=== PATIENT | male | born 1950 | race Caucasian/White ===

== ENCOUNTER → 2018-04-16 12:55 | Outpatient (CLI) | payer MEDICARE, OTHER, SELFPAY | PROVIDERS: PCP Internal Medicine; Visit Provider Internal Medicine | DX: Z48.817 Encounter for surgical aftercare following surgery on the skin and subcutaneous tissue (principal); L84 Corns and callosities; E11.9 Type 2 diabetes mellitus without complications | CPT/HCPCS: 99212 ==

== ENCOUNTER → 2018-04-23 09:18 | Outpatient (CLI) | payer MEDICARE, OTHER, SELFPAY | PROVIDERS: PCP Internal Medicine; Visit Provider Internal Medicine | DX: L84 Corns and callosities (principal); E11.9 Type 2 diabetes mellitus without complications; M21.6X2 Other acquired deformities of left foot | CPT/HCPCS: 99212 ==

== ENCOUNTER → 2019-07-07 13:23 | Outpatient (CLI) | payer MEDICARE, OTHER, SELFPAY | PROVIDERS: PCP Family Medicine; Visit Provider Family Medicine | DX: E11.621 Type 2 diabetes mellitus with foot ulcer (principal); L97.422 Non-pressure chronic ulcer of left heel and midfoot with fat layer exposed; E11.40 Type 2 diabetes mellitus with diabetic neuropathy, unspecified | CPT/HCPCS: 11042; 93922; 99212; 99214 ==

== ENCOUNTER → 2019-07-14 08:43 | Outpatient (CLI) | payer MEDICARE, OTHER, SELFPAY | PROVIDERS: PCP Family Medicine; Visit Provider Family Medicine | DX: E11.621 Type 2 diabetes mellitus with foot ulcer (principal); E11.40 Type 2 diabetes mellitus with diabetic neuropathy, unspecified; L97.421 Non-pressure chronic ulcer of left heel and midfoot limited to breakdown of skin | CPT/HCPCS: 11042 ==

== ENCOUNTER → 2019-07-21 09:53 | Outpatient (CLI) | payer MEDICARE, OTHER, SELFPAY | PROVIDERS: PCP Family Medicine; Visit Provider Family Medicine | DX: E11.621 Type 2 diabetes mellitus with foot ulcer (principal); L97.422 Non-pressure chronic ulcer of left heel and midfoot with fat layer exposed; E11.40 Type 2 diabetes mellitus with diabetic neuropathy, unspecified | CPT/HCPCS: 97597; 99212 ==

== ENCOUNTER → 2019-07-28 09:27 | Outpatient (CLI) | payer MEDICARE, OTHER, SELFPAY | PROVIDERS: PCP Family Medicine; Visit Provider Family Medicine | DX: E11.621 Type 2 diabetes mellitus with foot ulcer (principal); L97.422 Non-pressure chronic ulcer of left heel and midfoot with fat layer exposed; E11.40 Type 2 diabetes mellitus with diabetic neuropathy, unspecified | CPT/HCPCS: 11042; 99212 ==

== ENCOUNTER → 2019-08-04 09:57 | Outpatient (CLI) | payer MEDICARE, OTHER, SELFPAY | PROVIDERS: PCP Family Medicine; Visit Provider Family Medicine | DX: E11.621 Type 2 diabetes mellitus with foot ulcer (principal); L97.422 Non-pressure chronic ulcer of left heel and midfoot with fat layer exposed; E11.40 Type 2 diabetes mellitus with diabetic neuropathy, unspecified | CPT/HCPCS: 11042; 87070; 87205; 99213 ==

== ENCOUNTER → 2019-08-11 09:15 | Outpatient (CLI) | payer MEDICARE, OTHER, SELFPAY | PROVIDERS: PCP Family Medicine; Visit Provider Family Medicine | DX: E11.621 Type 2 diabetes mellitus with foot ulcer (principal); L97.429 Non-pressure chronic ulcer of left heel and midfoot with unspecified severity; E11.40 Type 2 diabetes mellitus with diabetic neuropathy, unspecified | CPT/HCPCS: 11042 ==

== ENCOUNTER → 2019-08-16 15:02 | Outpatient (CLI) | payer MEDICARE, OTHER, SELFPAY | PROVIDERS: PCP Family Medicine; Visit Provider Family Medicine | DX: E11.621 Type 2 diabetes mellitus with foot ulcer (principal); L97.421 Non-pressure chronic ulcer of left heel and midfoot limited to breakdown of skin; E11.40 Type 2 diabetes mellitus with diabetic neuropathy, unspecified | CPT/HCPCS: 11042 ==

== ENCOUNTER → 2019-08-18 09:12 | Outpatient (CLI) | payer MEDICARE, OTHER, SELFPAY | PROVIDERS: PCP Family Medicine; Visit Provider Family Medicine | DX: E11.621 Type 2 diabetes mellitus with foot ulcer (principal); L97.421 Non-pressure chronic ulcer of left heel and midfoot limited to breakdown of skin; E11.40 Type 2 diabetes mellitus with diabetic neuropathy, unspecified | CPT/HCPCS: 29445 ==

== ENCOUNTER → 2019-08-25 13:04 | Outpatient (CLI) | payer MEDICARE, OTHER, SELFPAY | PROVIDERS: PCP Family Medicine; Visit Provider Family Medicine | DX: E11.621 Type 2 diabetes mellitus with foot ulcer (principal); L97.421 Non-pressure chronic ulcer of left heel and midfoot limited to breakdown of skin; E11.40 Type 2 diabetes mellitus with diabetic neuropathy, unspecified | CPT/HCPCS: 97597 ==

== ENCOUNTER → 2019-09-01 15:32 | Outpatient (CLI) | payer MEDICARE, OTHER, SELFPAY | PROVIDERS: PCP Family Medicine; Visit Provider Family Medicine | DX: E11.621 Type 2 diabetes mellitus with foot ulcer (principal); L97.421 Non-pressure chronic ulcer of left heel and midfoot limited to breakdown of skin; E11.40 Type 2 diabetes mellitus with diabetic neuropathy, unspecified | CPT/HCPCS: 29445 ==

== ENCOUNTER → 2019-09-08 14:38 | Outpatient (CLI) | payer MEDICARE, OTHER, SELFPAY | PROVIDERS: PCP Family Medicine; Visit Provider Family Medicine | DX: E11.621 Type 2 diabetes mellitus with foot ulcer (principal); L97.422 Non-pressure chronic ulcer of left heel and midfoot with fat layer exposed; E11.40 Type 2 diabetes mellitus with diabetic neuropathy, unspecified | CPT/HCPCS: 29445 ==

== ENCOUNTER → 2019-09-15 13:37 | Outpatient (CLI) | payer MEDICARE, OTHER, SELFPAY | PROVIDERS: PCP Family Medicine; Visit Provider Family Medicine | DX: E11.621 Type 2 diabetes mellitus with foot ulcer (principal); L97.421 Non-pressure chronic ulcer of left heel and midfoot limited to breakdown of skin; E11.51 Type 2 diabetes mellitus with diabetic peripheral angiopathy without gangrene; E11.40 Type 2 diabetes mellitus with diabetic neuropathy, unspecified | CPT/HCPCS: 99212; 99213 ==

== ENCOUNTER → 2019-09-29 15:01 | Outpatient (CLI) | payer MEDICARE, OTHER, SELFPAY | PROVIDERS: PCP Family Medicine; Visit Provider Family Medicine | DX: E11.621 Type 2 diabetes mellitus with foot ulcer (principal); L97.422 Non-pressure chronic ulcer of left heel and midfoot with fat layer exposed; S81.801A Unspecified open wound, right lower leg, initial encounter; E11.40 Type 2 diabetes mellitus with diabetic neuropathy, unspecified | CPT/HCPCS: 29445; 97597; 99214 ==

== ENCOUNTER → 2019-10-06 11:12 | Outpatient (CLI) | payer MEDICARE, OTHER, SELFPAY | PROVIDERS: PCP Family Medicine; Visit Provider Family Medicine | DX: E11.628 Type 2 diabetes mellitus with other skin complications (principal); E11.40 Type 2 diabetes mellitus with diabetic neuropathy, unspecified; S81.801A Unspecified open wound, right lower leg, initial encounter; A52.16 Charcot's arthropathy (tabetic) | CPT/HCPCS: 97597 ==

== ENCOUNTER → 2019-10-12 13:10 | Outpatient (CLI) | payer MEDICARE, OTHER, SELFPAY | PROVIDERS: PCP Family Medicine; Visit Provider Family Medicine | DX: E11.628 Type 2 diabetes mellitus with other skin complications (principal); S81.801D Unspecified open wound, right lower leg, subsequent encounter; A52.16 Charcot's arthropathy (tabetic); E11.40 Type 2 diabetes mellitus with diabetic neuropathy, unspecified | CPT/HCPCS: 99213 ==

== ENCOUNTER → 2019-10-19 14:45 | Outpatient (CLI) | payer MEDICARE, OTHER, SELFPAY | PROVIDERS: PCP Family Medicine; Visit Provider Family Medicine | DX: E11.628 Type 2 diabetes mellitus with other skin complications (principal); S81.801D Unspecified open wound, right lower leg, subsequent encounter; E11.40 Type 2 diabetes mellitus with diabetic neuropathy, unspecified | CPT/HCPCS: 99212 ==

== ENCOUNTER → 2019-10-26 09:02 | Outpatient (CLI) | payer MEDICARE, OTHER, SELFPAY | PROVIDERS: PCP Family Medicine; Visit Provider Family Medicine | DX: E11.628 Type 2 diabetes mellitus with other skin complications (principal); A52.16 Charcot's arthropathy (tabetic); S81.801D Unspecified open wound, right lower leg, subsequent encounter; E11.40 Type 2 diabetes mellitus with diabetic neuropathy, unspecified | CPT/HCPCS: 99212 ==

== ENCOUNTER → 2021-07-01 08:42 | Outpatient (CLI) | payer MEDICARE, OTHER, SELFPAY ==
--- NOTE | 2021-07-01 | DI.RAD.S_ITS ---
PROCEDURE: XR CHEST 2V INDICATIONS: DYSPNEA ON EXERTION TECHNIQUE: 2 views of the chest were acquired. COMPARISON: None. FINDINGS: Surgical changes and devices: None. Lungs and pleura: Lungs are abnormal with a mild degree of interstitial prominence but this is in the setting of reduced inspiratory volume.. No pleural effusions or pneumothorax. Mediastinum: Mediastinal contours are normal. Heart size is at the upper limits of. Bones and chest wall: No suspicious bony abnormalities. Soft tissues appear unremarkable. IMPRESSION: Reduced inspiratory volume. When this is taken into account there appears to be a slight degree of interstitial prominence and heart size at the upper limits of normal. Dictated by: Sebastián Tiwari M.D. on 07/01/2021 at 9:13 Approved by: Sebastián Tiwari M.D. on 07/01/2021 at 9:14
== END ==
PROVIDERS: PCP Family Medicine; Referring Provider Internal Medicine Cardiovascular Disease; Visit Provider Internal Medicine Cardiovascular Disease
DX: R06.00 Dyspnea, unspecified (principal)
CPT/HCPCS: 71046

== ENCOUNTER → 2022-04-18 11:58 | Outpatient (CLI) | payer MEDICARE, OTHER, SELFPAY | PROVIDERS: PCP Family Medicine; Referring Provider Family Medicine; Visit Provider Family Medicine | DX: E11.40 Type 2 diabetes mellitus with diabetic neuropathy, unspecified (principal); R60.0 Localized edema; Z79.4 Long term (current) use of insulin; Z86.31 Personal history of diabetic foot ulcer | CPT/HCPCS: 93922; 99212; 99214 ==

== ENCOUNTER → 2024-08-09 09:35 | Outpatient (CLI) | payer OTHER, SELFPAY | PROVIDERS: PCP Family Medicine; Referring Provider Nurse Practitioner Family; Visit Provider Surgery | DX: E11.621 Type 2 diabetes mellitus with foot ulcer (principal); E11.42 Type 2 diabetes mellitus with diabetic polyneuropathy; L97.422 Non-pressure chronic ulcer of left heel and midfoot with fat layer exposed; L84 Corns and callosities; S81.801A Unspecified open wound, right lower leg, initial encounter; Z79.01 Long term (current) use of anticoagulants | CPT/HCPCS: 11042; 87070; 87075; 87077; 87186; 87205; 99214 ==

== ENCOUNTER → 2024-08-10 09:33 | Outpatient (CLI) | payer OTHER, SELFPAY ==
[2024-08-10 11:20] LABS: Add Manual Diff / Slide Review NO; Basophils Absolute Auto 0 /uL (0-100); Basophils Percent Auto 0.6 % (0-2); Eosinophils Absolute Auto 100 /uL (0-450); Eosinophils Percent Auto 2.5 % (2-4); Hematocrit 39.6 % (41-53); Hemoglobin 13.4 g/dL (13.5-17.5); Lymphocytes Absolute Auto 1000 /uL (1100-4500); Lymphocytes Percent Auto 17.9 % (25-40); Mean Corpuscular HGB Conc 33.8 % (30-36); Mean Corpuscular Hemoglobin 29.2 PG (26-34); Mean Corpuscular Volume 86.5 fL (80-100); Monocytes Absolute Auto 300 /uL (0-900); Monocytes Percent Auto 5.8 % (3-14); Neutrophils Absolute Auto 4000 /uL (1500-7000); Neutrophils Percent Auto 73.2 % (50-75); Platelet Count 142 X10^3/uL (150-400); Red Blood Cell Count 4.58 X10^6/uL (4.5-5.9); Red Cell Distribution Width 18.3 % (11.6-14.8); White Blood Cell Count 5.5 X10^3/uL (4.5-11.0)
[2024-08-10 12:00] LABS: Hemoglobin A1C% w Est Avg Glu 6.7 % (4.0-6.0)
[2024-08-10 12:04] LABS: Alanine Aminotransferase 25 IU/L (<50); Albumin 3.9 g/dL (3.5-5.0); Albumin Globulin Ratio 1.3 (1.0-2.8); Alkaline Phosphatase 139 U/L (38-126); Aspartate Aminotransferase 29 IU/L (17-59); BUN Creatinine Ratio 26.8 (6-22); Bilirubin Total 2.1 mg/dL (0.2-1.3); Blood Urea Nitrogen 38 mg/dL (9-20); Calcium 9.2 mg/dL (8.4-10.2); Carbon Dioxide 23 mmol/L (22-32); Chloride 102 mmol/L (98-107); Estimated Glomerular Filt Rate 52 mL/min (>60); Globulin 3.1 g/dL (1.7-4.1); Glucose 173 mg/dL (80-110); HEMOLYSIS < 15 (0-50); Potassium 4.3 mmol/L (3.4-5.1); Sodium 136 mmol/L (137-145)
== END ==
PROVIDERS: PCP Family Medicine; Referring Provider Surgery; Visit Provider Surgery
DX: E11.621 Type 2 diabetes mellitus with foot ulcer (principal)
CPT/HCPCS: 36415; 80053; 83036; 85025

== ENCOUNTER → 2024-08-16 09:44 | Outpatient (CLI) | payer OTHER, SELFPAY | PROVIDERS: PCP Family Medicine; Referring Provider Family Medicine; Visit Provider Surgery | DX: E11.621 Type 2 diabetes mellitus with foot ulcer (principal); E11.42 Type 2 diabetes mellitus with diabetic polyneuropathy; L97.422 Non-pressure chronic ulcer of left heel and midfoot with fat layer exposed; L84 Corns and callosities; Z79.01 Long term (current) use of anticoagulants | CPT/HCPCS: 11042 ==

== ENCOUNTER → 2024-08-23 09:31 | Outpatient (CLI) | payer OTHER, SELFPAY | LOC: WC 09:32 | PROVIDERS: PCP Family Medicine; Referring Provider Nurse Practitioner Family; Visit Provider Surgery | DX: E11.621 Type 2 diabetes mellitus with foot ulcer (principal); E11.42 Type 2 diabetes mellitus with diabetic polyneuropathy; L97.422 Non-pressure chronic ulcer of left heel and midfoot with fat layer exposed; L84 Corns and callosities; L08.89 Other specified local infections of the skin and subcutaneous tissue; Z79.01 Long term (current) use of anticoagulants | CPT/HCPCS: 11042 ==

== ENCOUNTER 2024-08-28 05:51 | Emergency (ER) | payer OTHER, SELFPAY ==
[2024-08-28 06:04] VITALS: BP 184/79; PULSE 63; RESP 16; TEMP 36; O2SAT 99; BMI 34.0
--- NOTE | 2024-08-28 06:11 | ED.CHESTPAIN ---
HPI - Chest Pain <Moriah Reddy DO - Last Filed: 08/29/24 01:22> General Chief Complaint: Neck Pain/Injury Stated Complaint: neck pain, moving into shoulders and chest Time Seen by Provider: 08/28/24 06:02 History of Present Illness HPI narrative: Patient is a 74-year-old male history of atrial fibrillation on anticoagulation, coronary artery disease presenting today with significant neck pain. He reports it is definitely worse on the left side more than the right. He says 70s ago he had a CT for his thyroid. His neck had to be in a weird position. 2 days later he had increasing neck pain. He was taking like some trazodone other stronger medications but he did not like them and did not work so he quit taking everything altogether. He has been trying heat but just having increasing pain. He is having some increased numbness in his left hand but has been going on for a few months it has not worse. He has no numbness it face. No fevers or shortness of breath. Pain is worse when he moves his arm Related Data Previous Rx's Medication Instructions Recorded cyclobenzaprine 10 mg tablet 10 mg PO BEDTIME PRN muscle spasm 08/28/24 7 days #7 tabs Allergies Allergy/AdvReac Type Severity Reaction Status Date / Time tramadol Allergy Unknown Verified 07/27/24 14:51 Sulfa (Sulfonamide Allergy Verified 08/28/24 06:11 Antibiotics) Patient History <Moriah Reddy DO - Last Filed: 08/29/24 01:22> Social History Smoking Status: Unknown if ever smoked Smoking Status: Unknown if ever smoked Exam <Moriah Reddy DO - Last Filed: 08/29/24 01:22> Initial Vital Signs Initial Vital Signs: Vital Signs Temperature 96.8 F L 08/28/24 06:04 Pulse Rate 63 08/28/24 06:04 Respiratory Rate 16 08/28/24 06:04 Blood Pressure 184/79 H 08/28/24 06:04 Pulse Oximetry 99 08/28/24 06:04 Oxygen Delivery Method Room Air 08/28/24 06:04 GENERAL: Alert 74-year-old male and in no acute distress. HEENT: Head atraumatic,EOMI, pupils reactive, face symmetric, moist mucous membranes NECK: No vertebral tenderness no step-off he is tender on the left trapezius. Definitely reproducible. He was full flexion and extension with rotation. CARDIOVASCULAR: Regular rate and rhythm without murmurs, rubs or gallops. RESPIRATORY: Breath sounds equal bilaterally, no wheezes rales or rhonchi. ABDOMEN: Soft, nontender. Normoactive bowel sounds all 4 quadrants. No guarding or rebound. EXTREMITIES: Normal range of motion, no clubbing or edema. Neurovascularly intact NEUROLOGICAL: Alert and oriented x4.Normal gait and speech. Cranial nerves II through XII grossly intact. SKIN: Warm, dry, no laceration, no petechiae, no rashes or lesions. <DO Fredi Solano Last Filed: 08/28/24 07:16> Initial Vital Signs Initial Vital Signs: Vital Signs Temperature 96.8 F L 08/28/24 06:04 Pulse Rate 63 08/28/24 06:04 Respiratory Rate 16 08/28/24 06:04 Blood Pressure 184/79 H 08/28/24 06:04 Pulse Oximetry 99 08/28/24 06:04 Oxygen Delivery Method Room Air 08/28/24 06:04 Course <DO Fredi Thomas Last Filed: 08/29/24 01:22> Orders Ordered: Discontinued Medications Acetaminophen (Acetaminophen 325 Mg Tablet) 975 mg PO NOW ONE Stop: 08/28/24 06:27 Last Admin: 08/28/24 06:33 Dose: 975 mg Documented By: MILAGRO Lidocaine (Lidocaine 5% Patch) 1 each TOP NOW ONE Stop: 08/28/24 06:27 Last Admin: 08/28/24 06:34 Dose: 1 each Documented By: MILAGRO Vital Signs Vital signs: Vital Signs - 8 hr 08/28/24 06:04 Temperature 96.8 F L Pulse Rate 63 Respiratory Rate 16 Blood Pressure 184/79 H Pulse Oximetry 99 Oxygen Delivery Method Room Air <DO Fredi Solano Last Filed: 08/28/24 07:16> Orders Ordered: Discontinued Medications Acetaminophen (Acetaminophen 325 Mg Tablet) 975 mg PO NOW ONE Stop: 08/28/24 06:27 Last Admin: 08/28/24 06:33 Dose: 975 mg Documented By: MILAGRO Lidocaine (Lidocaine 5% Patch) 1 each TOP NOW ONE Stop: 08/28/24 06:27 Last Admin: 08/28/24 06:34 Dose: 1 each Documented By: MILAGRO Vital Signs Vital signs: Vital Signs - 8 hr 08/28/24 06:04 Temperature 96.8 F L Pulse Rate 63 Respiratory Rate 16 Blood Pressure 184/79 H Pulse Oximetry 99 Oxygen Delivery Method Room Air MDM - Chest Pain <Moriah Reddy DO - Last Filed: 08/29/24 01:22> Lab Data 08/28/24 06:23 08/28/24 06:23 Labs: Lab Results 08/28/24 Range/Units 06:23 WBC 5.2 (4.5-11.0) X10^3/uL RBC 4.75 (4.5-5.9) X10^6/uL Hgb 13.5 (13.5-17.5) g/dL Hct 40.7 L (41-53) % MCV 85.7 (80-100) fL MCH 28.4 (26-34) PG MCHC 33.1 (30-36) % RDW 17.7 H (11.6-14.8) % Plt Count 94 L (150-400) X10^3/uL Neut % (Auto) 74.1 (50-75) % Lymph % (Auto) 15.2 L (25-40) % [place] % (Auto) 6.5 (3-14) % Eos % (Auto) 3.5 (2-4) % Baso % (Auto) 0.7 (0-2) % Neut # (Auto) 3900 (4240-4791) /uL Lymph # (Auto) 800 L (6008-0598) /uL [place] # (Auto) 300 (0-900) /uL Eos # (Auto) 200 (0-450) /uL Baso # (Auto) 0 (0-100) /uL Sodium 134 L (137-145) mmol/L Potassium 4.0 (3.4-5.1) mmol/L Chloride 100 (98-107) mmol/L Carbon Dioxide 25 (22-32) mmol/L BUN 31 H (9-20) mg/dL Creatinine 1.20 (0.66-1.25) mg/dL Estimated GFR > 60 (>60) mL/min BUN/Creatinine Ratio 25.8 H (6-22) Glucose 161 H (80-110) mg/dL Calcium 9.2 (8.4-10.2) mg/dL Total Bilirubin 3.2 H (0.2-1.3) mg/dL AST 29 (17-59) IU/L ALT 26 (<50) IU/L Alkaline Phosphatase 108 (38-126) U/L Total Creatine Kinase 91 (55-170) U/L Troponin I < 0.012 (0.01-0.034) ng/mL Total Protein 7.7 (6.3-8.2) g/dL Albumin 4.4 (3.5-5.0) g/dL Globulin 3.3 (1.7-4.1) g/dL Albumin/Globulin Ratio 1.3 (1.0-2.8) Lipase 93 (23-300) U/L Imaging Data Chest x-ray: Radiologist's Impression: PROCEDURE: XR CHEST 1V INDICATIONS: chest pain TECHNIQUE: One view of the chest was acquired. COMPARISON: [facility], , XR CHEST 2V, 07/01/2021, 8:41. FINDINGS: Surgical changes and devices: Post CABG changes are seen. Right shoulder arthroplasty is seen Lungs and pleura: An incomplete inspiratory result is noted, causing a crowded appearance to the lung markings. No focal infiltrates are seen. No pneumothorax or significant pleural effusions are seen. Mediastinum: Mediastinal contours appear normal. Heart size is near the upper limits of normal. Bones and chest wall: No suspicious bony lesions. Age-appropriate bony degenerative changes are seen. Overlying soft tissues appear unremarkable. IMPRESSION: Low lung volumes, without an acute abnormality seen by plain film. Heart size at the upper limits of normal. Postoperative and degenerative changes are seen. Note: No significant discrepancy from the preliminary report. Dictated by: Mukund Nuñez M.D. on 08/28/2024 at 8:07 ECG Data Interpretation: Atrial fibrillation rate 44 no ischemia MDM Narrative Medical decision making narrative: MDM CC: Neck pain Complicating co-morbidities: Neck pain AFib coronary artery disease Medical records reviewed: No prior imaging, was seen at walk-in clinic 07/27/2024 for foot ulcer Differential considered: Musculoskeletal coronary artery disease, atrial fibrillation, carotid dissection Exam documented above, pertinent findings include: Reproducible left-sided neck pain and trapezius muscle Lab Test results independently reviewed as above. Pertinent findings: Pending Independently reviewed EKG as above AFib rate controlled Imaging studies independently reviewed: Consultations: [ ] Treatments: [ ] Re-evaluations: [ ] Discussion: 74-year-old male history of atrial fibrillation coronary artery disease presents with worsening neck pain. It definitely is reproducible to touch on the trapezius muscle. He is hesitant to have any kind of narcotics would do a muscle relaxer but at home he drove himself. I do not have real suspicion for carotid dissection he has no face pain he really does not have any weakness and he has ongoing persistent numbness in the left hand which has been there for months. There was not significant manipulation extubate she is neck back for a CT to get it in position. I suspect musculoskeletal however with significant cardiac history ruling out cardiac event Patient signed out to Dr. West <Parth Tapia DO - Last Filed: 08/28/24 07:16> Lab Data Labs: Lab Results 08/28/24 Range/Units 06:23 WBC 5.2 (4.5-11.0) X10^3/uL RBC 4.75 (4.5-5.9) X10^6/uL Hgb 13.5 (13.5-17.5) g/dL Hct 40.7 L (41-53) % MCV 85.7 (80-100) fL MCH 28.4 (26-34) PG MCHC 33.1 (30-36) % RDW 17.7 H (11.6-14.8) % Plt Count 94 L (150-400) X10^3/uL Neut % (Auto) 74.1 (50-75) % Lymph % (Auto) 15.2 L (25-40) % [place] % (Auto) 6.5 (3-14) % Eos % (Auto) 3.5 (2-4) % Baso % (Auto) 0.7 (0-2) % Neut # (Auto) 3900 (2741-5902) /uL Lymph # (Auto) 800 L (6847-7579) /uL [place] # (Auto) 300 (0-900) /uL Eos # (Auto) 200 (0-450) /uL Baso # (Auto) 0 (0-100) /uL Sodium 134 L (137-145) mmol/L Potassium 4.0 (3.4-5.1) mmol/L Chloride 100 (98-107) mmol/L Carbon Dioxide 25 (22-32) mmol/L BUN 31 H (9-20) mg/dL Creatinine 1.20 (0.66-1.25) mg/dL Estimated GFR > 60 (>60) mL/min BUN/Creatinine Ratio 25.8 H (6-22) Glucose 161 H (80-110) mg/dL Calcium 9.2 (8.4-10.2) mg/dL Total Bilirubin 3.2 H (0.2-1.3) mg/dL AST 29 (17-59) IU/L ALT 26 (<50) IU/L Alkaline Phosphatase 108 (38-126) U/L Total Creatine Kinase 91 (55-170) U/L Troponin I < 0.012 (0.01-0.034) ng/mL Total Protein 7.7 (6.3-8.2) g/dL Albumin 4.4 (3.5-5.0) g/dL Globulin 3.3 (1.7-4.1) g/dL Albumin/Globulin Ratio 1.3 (1.0-2.8) Lipase 93 (23-300) U/L MDM Narrative Medical decision making narrative: [facility] CC: Neck pain Complicating co-morbidities: Neck pain AFib coronary artery disease Medical records reviewed: No prior imaging, was seen at walk-in clinic 07/27/2024 for foot ulcer Differential considered: Musculoskeletal coronary artery disease, atrial fibrillation, carotid dissection Exam documented above, pertinent findings include: Reproducible left-sided neck pain and trapezius muscle Lab Test results independently reviewed as above. Pertinent findings: Pending Independently reviewed EKG as above AFib rate controlled Imaging studies independently reviewed: Consultations: [ ] Treatments: [ ] Re-evaluations: [ ] Discussion: 74-year-old male history of atrial fibrillation coronary artery disease presents with worsening neck pain. It definitely is reproducible to touch on the trapezius muscle. He is hesitant to have any kind of narcotics would do a muscle relaxer but at home he drove himself. I do not have real suspicion for carotid dissection he has no face pain he really does not have any weakness and he has ongoing persistent numbness in the left hand which has been there for months. There was not significant manipulation extubate she is neck back for a CT to get it in position. I suspect musculoskeletal however with significant cardiac history ruling out cardiac event Patient signed out to Dr. Tapia 0700: Patient signed out to me by overnight doctor: Patient still pending reeval and lab work to r/o ACS. Patient with improving symptoms after admin of lidocaine and tylenol. Patient drove here and is going to drive home therefore will require muscle relaxers for home. 0715: Lab work reviewed, trop negative, patient not complaining of any chest pain shortness of breath, states improved symptoms of the neck on my exam patient with tenderness to palpation over the muscles more consistent with muscle spasm/muscle strain, neurovascularly intact upper extremities no trauma. Patient will be sent home with muscle relaxers, safe for discharge home with outpatient follow up Discharge Plan Departure Patient Disposition: Home Clinical Impression: Strain of neck muscle Activity Restrictions/Additional Instructions: Please read the discharge instructions sheet carefully and bring all papers to all doctor follow-up visits, as it may contain information that your doctor may want to see. Disease processes change and evolve, if your symptoms worsen or if you develop any new symptoms that are concerning to you please return for evaluation. Your evaluation today does not show any evidence of any life-threatening/serious illnesses requiring admission to the hospital or surgery. Please follow-up with your doctor for re-evaluation in approximately 1 day. Seek immediate medical attention for any worrisome symptoms. Prescriptions: New cyclobenzaprine 10 mg tablet 10 mg PO BEDTIME PRN (Reason: muscle spasm) 7 Days Qty: 7 0RF Referrals: Parth Caraballo MD [Primary Care Provider] - Stand Alone Forms: Patient Portal/API
--- NOTE | 2024-08-28 06:12 | EKG_ITS ---
[address] [address] Test Date: 2024-08-28 Pat Name: Benjamín Boyd Department: [facility] Room: Gender: Male Travel Coordinator: JALEN : 1950 Requested By: Order Number: [id number] Reading MD: Benjamín Barnes MD Measurements Intervals [place] Rate: 44 P: [place]: QRS: -13 QRSD: 98 T: 125 QT: 460 QTc: 393 Interpretive Statements Atrial fibrillation with slow ventricular response with a competing junctional pacemaker Possible Inferior infarct , age undetermined Anteroseptal infarct , age undetermined T wave abnormality, consider lateral ischemia NO PRIOR TRACING Electronically Signed On 08-28-2024 13:12:47 PDT by Benjamín Barnes MD
--- NOTE | 2024-08-28 06:26 | DI.RAD.S_ITS ---
PROCEDURE: XR CHEST 1V INDICATIONS: chest pain TECHNIQUE: One view of the chest was acquired. COMPARISON: [facility], CR, XR CHEST 2V, 07/01/2021, 8:41. FINDINGS: Surgical changes and devices: Post CABG changes are seen. Right shoulder arthroplasty is seen Lungs and pleura: An incomplete inspiratory result is noted, causing a crowded appearance to the lung markings. No focal infiltrates are seen. No pneumothorax or significant pleural effusions are seen. Mediastinum: Mediastinal contours appear normal. Heart size is near the upper limits of normal. Bones and chest wall: No suspicious bony lesions. Age-appropriate bony degenerative changes are seen. Overlying soft tissues appear unremarkable. IMPRESSION: Low lung volumes, without an acute abnormality seen by plain film. Heart size at the upper limits of normal. Postoperative and degenerative changes are seen. Note: No significant discrepancy from the preliminary report. Dictated by: Mukund Nuñez M.D. on 08/28/2024 at 8:07 Approved by: Mukund Nuñez M.D. on 08/28/2024 at 8:09
[2024-08-28] MEDS: ACETAMINOPHEN 325 MG TABLET 975 MG PO (06:33)
[2024-08-28 06:34] LABS: Add Manual Diff / Slide Review NO; Basophils Absolute Auto 0 /uL (0-100); Basophils Percent Auto 0.7 % (0-2); Eosinophils Absolute Auto 200 /uL (0-450); Eosinophils Percent Auto 3.5 % (2-4); Hematocrit 40.7 % (41-53); Hemoglobin 13.5 g/dL (13.5-17.5); Lymphocytes Absolute Auto 800 /uL (1100-4500); Lymphocytes Percent Auto 15.2 % (25-40); Mean Corpuscular HGB Conc 33.1 % (30-36); Mean Corpuscular Hemoglobin 28.4 PG (26-34); Mean Corpuscular Volume 85.7 fL (80-100); Monocytes Absolute Auto 300 /uL (0-900); Monocytes Percent Auto 6.5 % (3-14); Neutrophils Absolute Auto 3900 /uL (1500-7000); Neutrophils Percent Auto 74.1 % (50-75); Platelet Count 94 X10^3/uL (150-400); Red Blood Cell Count 4.75 X10^6/uL (4.5-5.9); Red Cell Distribution Width 17.7 % (11.6-14.8); White Blood Cell Count 5.2 X10^3/uL (4.5-11.0)
[2024-08-28] MEDS: LIDOCAINE 5% PATCH 1 EACH TOP (06:34)
[2024-08-28 06:47] LABS: Alanine Aminotransferase 26 IU/L (<50); Albumin 4.4 g/dL (3.5-5.0); Albumin Globulin Ratio 1.3 (1.0-2.8); Alkaline Phosphatase 108 U/L (38-126); Aspartate Aminotransferase 29 IU/L (17-59); BUN Creatinine Ratio 25.8 (6-22); Bilirubin Total 3.2 mg/dL (0.2-1.3); Blood Urea Nitrogen 31 mg/dL (9-20); Calcium 9.2 mg/dL (8.4-10.2); Carbon Dioxide 25 mmol/L (22-32); Chloride 100 mmol/L (98-107); Creatine Kinase 91 U/L (55-170); Estimated Glomerular Filt Rate > 60 mL/min (>60); Globulin 3.3 g/dL (1.7-4.1); Glucose 161 mg/dL (80-110); HEMOLYSIS < 15 (0-50); Lipase 93 U/L (23-300); Sodium 134 mmol/L (137-145); Total Protein 7.7 g/dL (6.3-8.2)
[2024-08-28 06:59] LABS: Troponin I < 0.012 ng/mL (0.01-0.034)
== END 2024-08-28 07:51 | disposition home or self-care (01) ==
PROVIDERS: Emergency Medicine; Emergency Provider Student in an Organized Health Care Education/Training Program; PCP Family Medicine
DX: S16.1XXA Strain of muscle, fascia and tendon at neck level, initial encounter (principal); R07.9 Chest pain, unspecified; R20.0 Anesthesia of skin; I48.91 Unspecified atrial fibrillation; Z79.01 Long term (current) use of anticoagulants; I25.10 Atherosclerotic heart disease of native coronary artery without angina pectoris
CPT/HCPCS: 36415; 71045; 80053; 82550; 83690; 84484; 85025; 93005; 93010; 99284

== ENCOUNTER → 2024-08-30 09:20 | Outpatient (CLI) | payer OTHER, SELFPAY | LOC: WC 09:22 | PROVIDERS: PCP Family Medicine; Referring Provider Nurse Practitioner Family; Visit Provider Surgery | DX: E11.621 Type 2 diabetes mellitus with foot ulcer (principal); E11.42 Type 2 diabetes mellitus with diabetic polyneuropathy; L97.422 Non-pressure chronic ulcer of left heel and midfoot with fat layer exposed; L84 Corns and callosities; Z79.01 Long term (current) use of anticoagulants | CPT/HCPCS: 11042 ==

== ENCOUNTER → 2024-09-06 09:36 | Outpatient (CLI) | payer OTHER, SELFPAY | LOC: WC 09:37 | PROVIDERS: PCP Family Medicine; Referring Provider Nurse Practitioner Family; Visit Provider Surgery | DX: L97.422 Non-pressure chronic ulcer of left heel and midfoot with fat layer exposed (principal); E11.621 Type 2 diabetes mellitus with foot ulcer; E11.42 Type 2 diabetes mellitus with diabetic polyneuropathy; L84 Corns and callosities; Z79.01 Long term (current) use of anticoagulants | CPT/HCPCS: 11042 ==

== ENCOUNTER → 2024-09-13 09:46 | Outpatient (CLI) | payer OTHER, SELFPAY | LOC: WC 09:47 | PROVIDERS: PCP Family Medicine; Referring Provider Nurse Practitioner Family; Visit Provider Surgery | DX: E11.621 Type 2 diabetes mellitus with foot ulcer (principal); E11.42 Type 2 diabetes mellitus with diabetic polyneuropathy; L97.422 Non-pressure chronic ulcer of left heel and midfoot with fat layer exposed; L84 Corns and callosities; Z79.01 Long term (current) use of anticoagulants | CPT/HCPCS: 11042; 99213 ==

== ENCOUNTER → 2024-09-20 10:36 | Outpatient (CLI) | payer OTHER, SELFPAY | LOC: WC 10:36 | PROVIDERS: PCP Family Medicine; Referring Provider Nurse Practitioner Family; Visit Provider Surgery | DX: E11.621 Type 2 diabetes mellitus with foot ulcer (principal); L97.422 Non-pressure chronic ulcer of left heel and midfoot with fat layer exposed; E11.42 Type 2 diabetes mellitus with diabetic polyneuropathy; L84 Corns and callosities | CPT/HCPCS: 11042; 99212 ==

== ENCOUNTER → 2024-09-27 10:50 | Outpatient (CLI) | payer OTHER, SELFPAY | PROVIDERS: PCP Family Medicine; Referring Provider Nurse Practitioner Family; Visit Provider Surgery | DX: E11.621 Type 2 diabetes mellitus with foot ulcer (principal); E11.42 Type 2 diabetes mellitus with diabetic polyneuropathy; L97.422 Non-pressure chronic ulcer of left heel and midfoot with fat layer exposed; L84 Corns and callosities; Z79.01 Long term (current) use of anticoagulants | CPT/HCPCS: 99212; 99213 ==

== ENCOUNTER → 2024-10-04 10:21 | Outpatient (CLI) | payer OTHER, SELFPAY | PROVIDERS: PCP Family Medicine; Referring Provider Family Medicine; Visit Provider Surgery | DX: Z09 Encounter for follow-up examination after completed treatment for conditions other than malignant neoplasm (principal); Z86.31 Personal history of diabetic foot ulcer | CPT/HCPCS: 99211; 99213 ==

== ENCOUNTER → 2025-01-06 14:06 | Outpatient (CLI) | payer OTHER, SELFPAY ==
--- NOTE | 2025-01-06 14:08 | DI.RAD.S_ITS ---
PROCEDURE: XR CHEST 2V INDICATIONS: acute cough TECHNIQUE: 2 views of the chest were acquired. COMPARISON: [facility], CR, XR CHEST 1V, 08/28/2024, 6:32. FINDINGS: Surgical changes and devices: Right shoulder hardware status post arthroplasty and median sternotomy sutures noted. Lungs and pleura: Moderate diffuse prominence of the pulmonary vasculature is suggestive of vascular congestion. Lungs are otherwise clear. No pleural effusions or pneumothorax. Mediastinum: Mediastinal contours are normal. Heart size is normal. Bones and chest wall: No suspicious bony abnormalities. Soft tissues appear unremarkable. IMPRESSION: Prominent pulmonary vasculature suggestive of vascular congestion. Otherwise, acute cardiopulmonary abnormality is seen. Dictated by: Blanco Crow M.D. on 01/07/2025 at 8:08 Approved by: Blanco Crow M.D. on 01/07/2025 at 8:10
== END ==
PROVIDERS: PCP Family Medicine; Referring Provider Nurse Practitioner Family; Visit Provider Nurse Practitioner Family
DX: R05.1 Acute cough (principal)
CPT/HCPCS: 71046

== ENCOUNTER → 2025-01-31 15:36 | Outpatient (CLI) | payer OTHER, SELFPAY | PROVIDERS: PCP Family Medicine; Visit Provider Nurse Practitioner Family | DX: T14.8XXA Other injury of unspecified body region, initial encounter (principal) | CPT/HCPCS: 87070; 87075; 87205 ==

== ENCOUNTER 2025-07-21 19:56 | Emergency (ER) | payer OTHER, SELFPAY ==
[2025-07-21 20:26] VITALS: BP 100/59; PULSE 78; RESP 18; TEMP 35.7; O2SAT 97; BMI 34.5
[2025-07-21 20:55] LABS: Add Manual Diff / Slide Review NO; Hematocrit 38.4 % (41-53); Hemoglobin 13.1 g/dL (13.5-17.5); Lymphocytes Absolute Auto 1300 /uL (1100-4500); Mean Corpuscular HGB Conc 34.1 % (30-36); Mean Corpuscular Hemoglobin 30.0 PG (26-34); Mean Corpuscular Volume 88.1 fL (80-100); Platelet Count 181 X10^3/uL (150-400)
[2025-07-21 21:00] LABS: INR 1.5 (0.9-1.3); Prothrombin Time 16.6 SECONDS (9.4-12.5)
[2025-07-21 21:02] LABS: PTT Partial Thromboplastin Tim 44 SECONDS (25.1-36.5)
[2025-07-21 21:04] LABS: Alanine Aminotransferase 42 IU/L (<50); Albumin 4.2 g/dL (3.5-5.0); Albumin Globulin Ratio 1.3 (1.0-2.8); Alkaline Phosphatase 128 U/L (38-126); Blood Urea Nitrogen 51 mg/dL (9-20); Calcium 9.0 mg/dL (8.4-10.2); Carbon Dioxide 19 mmol/L (22-32); Chloride 105 mmol/L (98-107); Estimated Glomerular Filt Rate 50 mL/min (>60); Globulin 3.3 g/dL (1.7-4.1); Glucose 245 mg/dL (70-99); HEMOLYSIS < 15 (0-50); Potassium 4.7 mmol/L (3.4-5.1); Sodium 138 mmol/L (137-145); Total Protein 7.5 g/dL (6.3-8.2)
--- NOTE | 2025-07-21 22:15 | DI.CT.S_ITS ---
PROCEDURE: CT ANGIO ABD/PEL GI BLEED INDICATIONS: rectal bleeding, s/p colonscopy 07/11, restarted eliquis TECHNIQUE: After the administration of intravenous contrast, 2.5 mm thick sections acquired from the diaphragm to the symphysis. 10 mm maximum-intensity projection (MIP) reformats were then acquired. For radiation dose reduction, the following was used: automated exposure control. COMPARISON: Located [facility], CT, CT ANGIO CHEST ABDOMEN PELVIS, 07/15/2025, 11:12. FINDINGS: Image Quality: A portion of the right abdomen and colon is not included within the field of view. Abdominal aorta: No aortic aneurysm or evidence of acute aortic syndrome. Atherosclerotic vascular calcifications. Mesenteric arteries: Patent without hemodynamically significant stenosis. Renal arteries: Patent without hemodynamically significant stenosis. OTHER: Lower Chest: Lung bases are clear. Severe coronary artery calcifications.. Liver: No solid mass. Gallbladder: Surgically absent. Biliary ducts: No biliary dilation. Pancreas: No ductal dilation. Spleen: Size is within normal limits. Adrenal Glands: No adrenal nodules. Kidneys and Ureters: Nonobstructing 11 mm right renal calcification. No hydronephrosis. No solid mass. No complex renal cystic lesion which requires follow up. Stomach and Bowel: Normal colonic caliber, without significant wall thickening. Diverticulosis without evidence of acute diverticulitis. Peritoneum: No abnormal intraperitoneal fluid. No free air. Ventral Wall: No hernia. Prior anterior abdominal hernia repair. Abdominal Nodes: No retroperitoneal or mesenteric adenopathy by size criteria. Vessels: Aorta and inferior vena cava are normal in size. PELVIS: Pelvic Organs: Unremarkable. Bladder: Urinary bladder wall thickening, asymmetric thickening anteriorly. Pelvic Nodes: No enlarged lymph nodes. Miscellaneous: No inguinal hernias are seen. Bones: No aggressive osseous abnormality. Posttraumatic changes within the pelvis. Decreased osseous mineralization and multilevel degenerative changes of the spine. IMPRESSION: 1. No active contrast extravasation is seen into the bowel. 2. No acute findings within the abdomen or pelvis. 3. Nonobstructing right renal calcification measuring 11 mm. 4. Diverticulosis without evidence of acute diverticulitis. 5. Asymmetric urinary bladder wall thickening, more pronounced anteriorly. This may be secondary to decompression as the urinary bladder was normal in appearance on prior exam when it was distended. 6. Please see above for additional findings. Dictated by: Ynan Vera M.D. on 07/21/2025 at 23:36 Approved by: Yann Vera M.D. on 07/21/2025 at 23:43
[2025-07-21] MEDS: SODIUM CHLORIDE 0.9% 1,000 ML 1000 ML IV (22:19)
[2025-07-21 22:25] LABS: Lipase 401 U/L (23-300)
[2025-07-22] VITALS (56 sets, daily range): BP systolic 56–127; BP diastolic 38–66; PULSE 42–97; RESP 8–34; TEMP 36.2–36.8; O2SAT 90–99
--- NOTE | 2025-07-22 00:07 | EKG_ITS ---
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
[2025-07-22] MEDS: SODIUM CHLORIDE 0.9% 1,000 ML 1000 ML IV (00:10)
--- NOTE | 2025-07-22 00:10 | ED.GIBLEED ---
HPI - GI Bleed General Chief complaint: GI Bleed Stated complaint: bleeding post colonoscopy Time Seen by Provider: 07/21/25 22:13 Source: patient Mode of arrival: Wheelchair History of Present Illness HPI Narrative: 75-year-old male history of atrial fibrillation on apixaban, prior CABG with 3 cardiac stents, hypertension, dyslipidemia, insulin-dependent diabetic, CHF who presents with complaint of rectal bleeding. Patient had colonoscopy on 07/11 at [facility] states he had 2 large polyps removed. Restarted his anticoagulants this Thursday patient states was doing well and steadily started having bleeding today on 07/21/2025. Patient states he has seen at least several bowel movements that has been dark reddish. He has seen some clots. Patient states he developed a little bit of left lower quadrant pain. Denies fevers, has felt lightheaded has not had any syncope. Had some shortness of breath after CT. No chest pain. Had some nausea but no vomiting. Denies urinary symptoms. Has not ever had any issues with GI bleeding in the past. Notes he has had prior bypass with 3 cardiac stents, hernia repair, had prior pelvic fracture that required surgical repair. Patient states has not allergy to tramadol and sulfa. No tobacco, alcohol or recreational drugs. He is agreeable to any blood if needed. He is a full code. Related Data Home Medications ?Medication ?Instructions ?Recorded ?Confirmed allopurinol 300 mg tablet 300 mg PO DAILY 01/31/25 01/31/25 amlodipine 5 mg tablet 5 mg PO DAILY 01/31/25 01/31/25 apixaban 5 mg tablet (Eliquis) 5 mg PO BID 01/31/25 01/31/25 carvedilol 3.125 mg tablet 3.125 mg PO BID 01/31/25 01/31/25 cetirizine 10 mg tablet 10 mg PO DAILY PRN 01/31/25 01/31/25 diclofenac sodium 1 % topical gel 4 g topical QID 01/31/25 01/31/25 diphenhydramine HCl 25 mg tablet 25 mg PO DAILY PRN 01/31/25 01/31/25 (Benadryl Allergy) doxycycline hyclate 50 mg tablet 50 mg PO .qod 01/31/25 01/31/25 empagliflozin 25 mg tablet 12.5 mg PO DAILY 01/31/25 01/31/25 (Jardiance) furosemide 40 mg tablet 40 mg PO Q OTHER DAY 01/31/25 01/31/25 gabapentin 300 mg capsule 600 mg PO BID 01/31/25 01/31/25 insulin aspart U-100 100 unit/mL 5 unit SUBCUT BID 01/31/25 01/31/25 subcutaneous solution (Novolog U-100 Insulin aspart) insulin glargine 100 unit/mL 35 unit SUBCUT BID 01/31/25 01/31/25 subcutaneous solution (Lantus U-100 Insulin) montelukast 10 mg tablet 5 mg PO DAILY 01/31/25 01/31/25 oxycodone-acetaminophen 5 mg-325 1 tab PO DAILY PRN 01/31/25 01/31/25 mg tablet (Percocet) pravastatin 40 mg tablet 40 mg PO BEDTIME 01/31/25 01/31/25 prednisolone acetate 1 % eye drp EYE-BOTH 01/31/25 01/31/25 drops,suspension semaglutide 1 mg/dose (4 mg/3 mL) 1 mg SUBCUT QWEEK 01/31/25 01/31/25 subcutaneous pen injector (Ozempic) sertraline 50 mg tablet 50 mg PO DAILY 01/31/25 01/31/25 spironolactone 25 mg tablet 25 mg PO Q OTHER DAY 01/31/25 01/31/25 telmisartan 80 mg tablet 80 mg PO DAILY 01/31/25 01/31/25 terazosin 2 mg capsule 2 mg PO BEDTIME 01/31/25 01/31/25 Allergies Allergy/AdvReac Type Severity Reaction Status Date / Time tramadol Allergy Unknown Verified 01/31/25 15:24 Sulfa (Sulfonamide Allergy Verified 01/31/25 15:24 Antibiotics) Review of Systems Review of Systems ROS Unobtainable: All systems reviewed & are unremarkable except as noted in HPI and below Exam Narrative Exam Narrative: GENERAL: Alert and oriented x three, severe distress, diaphoretic HEENT: Head normocephalic, atraumatic, EOMI, pupils reactive, face symmetric, moist mucous membranes NECK: Supple, full range of motion CARDIOVASCULAR: Bradycardic irregular rate and rhythm without murmurs, rubs or gallops. RESPIRATORY: Breath sounds equal bilaterally, no wheezes rales or rhonchi. ABDOMEN: Soft, mild left lower quadrant tenderness Normoactive bowel sounds all 4 quadrants. No guarding or rebound, rigidity, no mass, bright red blood rectally : No CVA tenderness EXTREMITIES: Normal range of motion, no clubbing or edema. Neurovascularly intact NEUROLOGICAL: Cranial nerves II through XII grossly intact. Moving all extremities SKIN: Warm, dry, no petechiae, no rashes or lesions. Initial Vital Signs Initial Vital Signs: Vital Signs Temperature 96.2 F L 07/21/25 20: Pulse Rate 78 07/21/25 20: Respiratory Rate 18 07/21/25 20: Blood Pressure 100/59 L 07/21/25 20: Pulse Oximetry 97 07/21/25 20: Oxygen Delivery Method Room Air 07/21/25 20: Course Orders Ordered: Discontinued Medications Sodium Chloride (Normal Saline 0.9%) 1,000 mls @ 1,000 mls/hr IV BOLUS ONE Stop: 07/21/25 23:14 Last Infusion: 07/21/25 23:06 Dose: Infused Documented By: Admin: 07/21/25 22:19 Dose: 1,000 mls/hr Documented By: MILAGRO Sodium Chloride (Normal Saline 0.9%) 1,000 mls @ 1,000 mls/hr IV BOLUS ONE Stop: 07/22/25 01:08 Last Infusion: 07/22/25 00:41 Dose: Infused Documented By: Admin: 07/22/25 00:10 Dose: 1,000 mls/hr Documented By: A[place]IN Lactated Ringer's (Lactated Ringers) 1,000 mls @ 84 mls/hr IV CONT CHRISTINE Last Admin: 07/22/25 01:56 Dose: 84 mls/hr Documented By: Ondansetron HCl (Ondansetron 4 Mg/2 Ml Inj) 4 mg IV NOW PRN PRN Reason: Nausea And Vomiting Ondansetron HCl (Ondansetron 4 Mg Odt) 4 mg PO NOW PRN PRN Reason: Nausea And Vomiting Pantoprazole Sodium (Pantoprazole 40 Mg Vial) 80 mg IV NOW ONE Stop: 07/22/25 00:12 Last Admin: 07/22/25 00:28 Dose: 80 mg Documented By: Prothrombin Complex Concent (Human) (Prothrombin Cplx(Pcc)4fact 1,000 Unit/40 Ml Vial) 2,000 unit IV NOW ONE Stop: 07/22/25 00:38 Last Admin: 07/22/25 01:31 Dose: 2,000 unit Documented By: DENNY Vital Signs Vital signs: Vital Signs - 8 hr 07/22/25 00:00 07/22/25 00:00 07/22/25 00:03 Temperature Pulse Rate Respiratory Rate Blood Pressure 70/41 L 70/41 L 56/38 L Pulse Oximetry Oxygen Delivery Method 07/22/25 00:03 07/22/25 00:04 07/22/25 00:04 Temperature Pulse Rate 50 L 53 L Respiratory Rate 23 21 Blood Pressure 56/38 L Pulse Oximetry 92 95 Oxygen Delivery Method 07/22/25 00:14 07/22/25 00:14 07/22/25 00:15 Temperature Pulse Rate 45 L Respiratory Rate 20 Blood Pressure 87/49 L 72/44 L Pulse Oximetry 90 L Oxygen Delivery Method 07/22/25 00:15 07/22/25 00:20 07/22/25 00:20 Temperature Pulse Rate 49 L 56 L Respiratory Rate 17 16 Blood Pressure 86/50 L Pulse Oximetry 90 L 93 Oxygen Delivery Method 07/22/25 00:21 07/22/25 00:25 07/22/25 00:25 Temperature 97.4 F L Pulse Rate 44 L 48 L Respiratory Rate 34 H 13 Blood Pressure 86/50 L 91/53 L Pulse Oximetry 91 Oxygen Delivery Method 07/22/25 00:30 07/22/25 00:30 07/22/25 00:35 Temperature Pulse Rate 43 L Respiratory Rate 13 Blood Pressure 96/55 L 92/54 L Pulse Oximetry 94 Oxygen Delivery Method 07/22/25 00:35 07/22/25 00:36 07/22/25 00:40 Temperature 97.5 F L Pulse Rate 44 L 45 L 48 L Respiratory Rate 14 8 L 10 L Blood Pressure 92/54 L Pulse Oximetry 95 96 Oxygen Delivery Method Room Air 07/22/25 00:40 07/22/25 00:45 07/22/25 00:45 Temperature Pulse Rate 45 L Respiratory Rate 15 Blood Pressure 104/52 L 106/52 L Pulse Oximetry 94 Oxygen Delivery Method 07/22/25 00:47 07/22/25 00:50 07/22/25 00:50 Temperature 97.3 F L Pulse Rate 47 L 47 L Respiratory Rate 22 28 H Blood Pressure 106/52 L 111/56 L Pulse Oximetry 95 Oxygen Delivery Method 07/22/25 00:55 07/22/25 00:55 07/22/25 01:00 Temperature Pulse Rate 42 L Respiratory Rate 26 H Blood Pressure 106/55 L 112/60 Pulse Oximetry 94 Oxygen Delivery Method 07/22/25 01:00 07/22/25 01:05 07/22/25 01:05 Temperature Pulse Rate 52 L 58 L Respiratory Rate 13 19 Blood Pressure 121/58 L Pulse Oximetry 97 99 Oxygen Delivery Method 07/22/25 01:09 07/22/25 01:10 07/22/25 01:10 Temperature 98.3 F Pulse Rate 48 L 50 L Respiratory Rate 21 25 H Blood Pressure 125/66 Pulse Oximetry 99 98 Oxygen Delivery Method Room Air 07/22/25 01:15 07/22/25 01:15 07/22/25 01:20 Temperature Pulse Rate 53 L Respiratory Rate 13 Blood Pressure 119/57 L 114/53 L Pulse Oximetry 98 Oxygen Delivery Method 07/22/25 01:20 07/22/25 01:25 07/22/25 01:25 Temperature Pulse Rate 54 L 51 L Respiratory Rate 21 13 Blood Pressure 113/56 L Pulse Oximetry 97 97 Oxygen Delivery Method 07/22/25 01:30 07/22/25 01:30 07/22/25 01:45 Temperature Pulse Rate 60 69 Respiratory Rate 16 20 Blood Pressure 116/57 L Pulse Oximetry 97 96 Oxygen Delivery Method 07/22/25 01:45 07/22/25 02:00 07/22/25 02:00 Temperature Pulse Rate 73 Respiratory Rate 21 Blood Pressure 95/56 L 112/59 L Pulse Oximetry 98 Oxygen Delivery Method Room Air 07/22/25 02:15 07/22/25 02:15 07/22/25 02:39 Temperature Pulse Rate 69 97 H Respiratory Rate 22 Blood Pressure 84/49 L Pulse Oximetry 97 96 Oxygen Delivery Method 07/22/25 02:41 07/22/25 02:41 07/22/25 02:45 Temperature Pulse Rate 70 Respiratory Rate 19 Blood Pressure 125/53 L 93/51 L Pulse Oximetry 99 Oxygen Delivery Method 07/22/25 02:45 07/22/25 03:00 07/22/25 03:00 Temperature Pulse Rate 64 72 Respiratory Rate 23 23 Blood Pressure 82/51 L Pulse Oximetry 96 96 Oxygen Delivery Method 07/22/25 03:16 07/22/25 03:16 07/22/25 03:17 Temperature 97.3 F L Pulse Rate 57 L 63 Respiratory Rate 24 20 Blood Pressure 101/55 L 101/55 L Pulse Oximetry 95 Oxygen Delivery Method 07/22/25 03:23 07/22/25 03:30 07/22/25 03:30 Temperature 97.8 F Pulse Rate 64 73 Respiratory Rate 20 24 Blood Pressure 101/55 L 94/53 L Pulse Oximetry 94 Oxygen Delivery Method 07/22/25 03:39 07/22/25 03:45 07/22/25 03:45 Temperature 97.2 F L Pulse Rate 73 76 Respiratory Rate 21 23 Blood Pressure 94/53 L 100/53 L Pulse Oximetry 95 Oxygen Delivery Method 07/22/25 04:00 07/22/25 04:00 07/22/25 04:15 Temperature Pulse Rate 66 Respiratory Rate Blood Pressure 88/51 L 99/51 L Pulse Oximetry 95 Oxygen Delivery Method 07/22/25 04:15 07/22/25 04:30 07/22/25 04:30 Temperature Pulse Rate 69 Respiratory Rate Blood Pressure 109/49 L 109/49 L Pulse Oximetry 95 Oxygen Delivery Method 07/22/25 04:30 07/22/25 06:14 07/22/25 06:21 Temperature 97.2 F L 97.4 F L Pulse Rate 67 66 63 Respiratory Rate 24 23 Blood Pressure 104/55 L 104/55 L Pulse Oximetry 94 Oxygen Delivery Method MDM - GI Bleed Lab Data 07/21/25 20:37 07/21/25 20:37 Labs: Lab Results 07/21/25 07/22/25 07/22/25 Range/Units 20:37 00:23 08:05 WBC 7.3 (4.5-11.0) X10^3/uL RBC 4.36 L (4.5-5.9) X10^6/uL Hgb 13.1 L (13.5-17.5) g/dL Hct 38.4 L (41-53) % MCV 88.1 (80-100) fL MCH 30.0 (26-34) PG MCHC 34.1 (30-36) % RDW 16.6 H (11.6-14.8) % Plt Count 181 (150-400) X10^3/uL Neut % (Auto) 73.5 (50-75) % Lymph % (Auto) 17.3 L (25-40) % [place] % (Auto) 5.6 (3-14) % Eos % (Auto) 2.7 (2-4) % Baso % (Auto) 0.9 (0-2) % Neut # (Auto) 5400 (3411-7737) /uL Lymph # (Auto) 1300 (8356-5235) /uL [place] # (Auto) 400 (0-900) /uL Eos # (Auto) 200 (0-450) /uL Baso # (Auto) 100 (0-100) /uL PT 16.6 H (9.4-12.5) SECONDS INR 1.5 H (0.9-1.3) APTT 44 H (25.1-36.5) SECONDS Sodium 138 (137-145) mmol/L Potassium 4.7 (3.4-5.1) mmol/L Chloride 105 (98-107) mmol/L Carbon Dioxide 19 L (22-32) mmol/L BUN 51 H (9-20) mg/dL Creatinine 1.46 H (0.66-1.25) mg/dL Estimated GFR 50 L (>60) mL/min BUN/Creatinine Ratio 34.9 H (6-22) Glucose 245 H (70-99) mg/dL POC Whole Bld Glucose 254 H 226 H (70-99) mg/dL Calcium 9.0 (8.4-10.2) mg/dL Total Bilirubin 2.2 H (0.2-1.3) mg/dL AST 40 (17-59) IU/L ALT 42 (<50) IU/L Alkaline Phosphatase 128 H (38-126) U/L Total Protein 7.5 (6.3-8.2) g/dL Albumin 4.2 (3.5-5.0) g/dL Globulin 3.3 (1.7-4.1) g/dL Albumin/Globulin Ratio 1.3 (1.0-2.8) Lipase 401 H (23-300) U/L Blood Type O Positive Antibody Screen Negative Crossmatch See Detail Point of Care Testing Glucose POC 226 ECG Data Attestation: I personally reviewed and interpreted this ECG as follows: Prior ECG tracings: available for review Interpretation: AFib with slow ventricular response rate of 43 QRS [address]-elevation, nonspecific change. Patient has prior from 08/28/2024 which shows a rate of 44. Patient also endorses that this is his normal heart rate. MDM Narrative Medical decision making narrative: EKG shows AFib slow ventricular response this appears consistent with prior EKGs from 2023 patient also endorses he is chronically bradycardic Labs show white count of 7.3 hemoglobin of 13 platelets of 181, INR is 1.5 PTT is 44, chemistries show a creatinine of 1.46 was 1.15 on 07/15/2025 BUN 51 distant with a GI bleed CO2 is 19 electrolytes are appropriate glucose is 254 point of care glucose a at 12:23 a.m. has also 254, bilirubin is 2.2 was 3.1 and 07/15/2025 days or otherwise normal lipase is for a 401. CTA GI protocol no aneurysm or evidence of acute aortic syndrome, atherosclerotic vascular calcification. Severe coronary artery calcifications. No acute contrast extravasation seen in the bowel no acute findings with the abdomen or pelvis. Nonobstructing right renal calcification measuring 11 mm. Diverticulosis without evidence of diverticulitis asymmetric urinary bladder wall thickening more pronounced anteriorly maybe secondary to compression I as urinary bladder was normal in appearance on prior exam and distended. Patient had significant drop in his blood pressure, has had least 2 additional bloody stools here in the department. Patient had 2 units ordered was given fluids in the interim. I spoke with Dr. Pate, general surgery who will see patient. Dr. Pate general surgery in the department. Evaluated patient based on his medical comorbidities and bleeding could potentially be IR. Does not feel it is safe to perform here in our facility as we have limited resources as well as limited blood supplies. Dr. Mosley [facility] ED physician who accepts for ED to ED transfer. Call out to see how quickly we can transport patient by ground if excessively long wait times we will consider airlift. Patient had additional bloody stool in the department. Dropped his pressure again was given 3 unit of blood. We will also order FFP. Because of patient's cardiac history sounds like he probably has a component of CHF or watch closely for fluid overload. Has been attempting to transfer patient. We been has been having issues with the available data transport. Called [facility] air and airlift. Initially delayed available and then canceled due to weather. Ground transport was also delayed. Flight transport notes if weather improves they will recontact. Patient signed out to Dr. Berry while awaiting transport. Patient received 3 PRBCs, receiving 1 FFP, Kcentra 2000 units as patient is on apixaban, protonix 80mg and fluids at sign out. Patient has had improvement of BP prior to signout. Critical Care Time Critical Care Time Critical Care Time: Yes Total Critical Care Time: 63 Attestation: The high probability of a clinically significant, sudden or life threatening deterioration of the [systems] system(s) required my full and direct attention, intervention and personal management. The aggregate critical care time was [--] minutes. This time is in addition to time spent performing reported procedures but includes the following: [x] Data Review and interpretation [x] Patient assessment and monitoring of vital signs [x] Documentation [x] Medication orders and management Discharge Plan Departure Patient Disposition: [facility] Clinical Impression: GI (gastrointestinal bleed), Hypotension, Atrial fibrillation with slow ventricular response, YANDY (acute kidney injury) Prescriptions: No Action allopurinol 300 mg tablet 300 mg PO DAILY amlodipine 5 mg tablet 5 mg PO DAILY Eliquis 5 mg tablet 5 mg PO BID carvedilol 3.125 mg tablet 3.125 mg PO BID Rx Instructions: must administer with a meal/food cetirizine 10 mg tablet 10 mg PO DAILY PRN diclofenac sodium 1 % gel 4 g topical QID Rx Instructions: apply to single knee, ankle, foot; for foot includes sole/toes/top of foot Jardiance 25 mg tablet 12.5 mg PO DAILY furosemide 40 mg tablet 40 mg PO Q OTHER DAY gabapentin 300 mg capsule 600 mg PO BID insulin aspart U-100 [Novolog U-100 Insulin aspart] 100 unit/mL solution 5 unit SUBCUT BID Patient Comments: 5 units SQ before breakfast and 10 units SQ before dinner. insulin glargine [Lantus U-100 Insulin] 100 unit/mL solution 35 unit SUBCUT BID montelukast 10 mg tablet 5 mg PO DAILY pravastatin 40 mg tablet 40 mg PO BEDTIME Ozempic 1 mg/dose (4 mg/3 mL) pen injector 1 mg SUBCUT QWEEK sertraline 50 mg tablet 50 mg PO DAILY spironolactone 25 mg tablet 25 mg PO Q OTHER DAY telmisartan 80 mg tablet 80 mg PO DAILY terazosin 2 mg capsule 2 mg PO BEDTIME diphenhydramine HCl [Benadryl Allergy] 25 mg tablet 25 mg PO DAILY PRN oxycodone-acetaminophen [Percocet] 5-325 mg tablet 1 tab PO DAILY PRN prednisolone acetate 1 % drops,suspension EYE-BOTH doxycycline hyclate 50 mg tablet 50 mg PO .qod Referrals: Parth Caraballo MD [Primary Care Provider, Family Practice]
[2025-07-22] MEDS: PANTOPRAZOLE 40 MG VIAL 80 MG IV (00:28)
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
[2025-07-22] MEDS: PROTHROMBIN CPLX(PCC)4FACT 1,000 UNIT/40 ML VIAL 2000 UNIT IV (01:31)
[2025-07-22] MEDS: LACTATED RINGERS 1,000 ML 84 ML IV (01:56)
--- NOTE | 2025-07-22 02:14 | PC.NURSE ---
Placed pt personal chair in back of his car with Security. It is currently parked out main entrance to the left second handicap spot edd [email or web address].
== END 2025-07-22 08:28 | disposition short-term general hospital (02) ==
PROVIDERS: Emergency Provider Emergency Medicine; PCP Family Medicine
DX: K92.2 Gastrointestinal hemorrhage, unspecified (principal); I95.9 Hypotension, unspecified; I48.20 Chronic atrial fibrillation, unspecified; N17.9 Acute kidney failure, unspecified; Z95.5 Presence of coronary angioplasty implant and graft; Z79.01 Long term (current) use of anticoagulants; I50.9 Heart failure, unspecified; R10.32 Left lower quadrant pain; R00.1 Bradycardia, unspecified
CPT/HCPCS: 36415; 36430; 74174; 80053; 82962; 83690; 85025; 85610; 85730; 86850; 86900; 86901; 86927; 93005; 96361; 96374; 96375; 99285; 99291; P9016; J2470; J7168; Q9967

== ENCOUNTER → 2025-10-25 08:08 | Outpatient (CLI) | payer OTHER, SELFPAY ==
--- NOTE | 2025-10-25 08:10 | DI.US.S_ITS ---
PROCEDURE: US THYROID INDICATIONS: THYROID NODULE TECHNIQUE: Real-time scanning was performed of the thyroid gland, with image documentation. COMPARISON: None. FINDINGS: Thyroid: Right lobe measures 7.7 x 3.1 x 3.0 cm. Left lobe measures 6.6 x 3.2 x 2.5 cm. Isthmus is 0.81 cm thick. Echotexture is heterogeneous. Nodule number: 1 Location: Midpole right thyroid lobe Size: 1.2 x 0.9 x 1 cm Composition: Solid Echogenicity: Hypoechoic Shape: Wider than tall Margins: Smooth Echogenic foci: Punctate calcifications Total points: 7 ACR TI-RADS category: 5 Nodule number: 2 Location: Mid to lower pole right thyroid lobe Size: 1.2 x 1.0 x 1.0 cm Composition: Solid Echogenicity: Hypoechoic Shape: Wider than tall Margins: Smooth Echogenic foci: Peripheral calcifications Total points: 6 ACR TI-RADS category: 4 Nodule number: 3 Location: Lower pole right thyroid lobe Size: 2.4 x 2.4 x 1.4 cm Composition: Solid Echogenicity: Hypoechoic Shape: Wider than tall Margins: Lobulated Echogenic foci: Macrocalcification Total points: 7 ACR TI-RADS category: 5 Nodule number: 4 Location: Midpole left thyroid lobe Size: 1.2 x 1.0 x 0.9 cm Composition: Solid Echogenicity: Hypoechoic Shape: Wider than tall Margins: Smooth Echogenic foci: Peripheral calcifications Total points: 6 ACR TI-RADS category: 4 IMPRESSION: Bilateral thyroid nodules and enlarged thyroid gland as detailed above. Consider biopsy of the lower pole right thyroid lobe nodule (nodule 3) for further evaluation. ACR TI-RADS definitions and recommendations: TI-RADS 1 (benign): 0 points. FNA not needed. TI-RADS 2 (not suspicious): 2 points. FNA not needed. TI-RADS 3: 3 points. * FNA if 2.5 cm or larger, follow up if 1.5 cm or larger (at 1, 3, and 5 years). TI-RADS 4: 4-6 points. * FNA if 1.5 cm or larger, follow up if 1 cm or larger (at 1, 2, 3, and 5 years). TI-RADS 5: 7 points or more. * FNA if 1 cm or larger, follow up if 0.5 cm or larger (every year for 5 years). Dictated by: Donal Juarez M.D. on 10/25/2025 at 16:31 Approved by: Donal Juarez M.D. on 10/25/2025 at 16:34
== END ==
PROVIDERS: PCP Family Medicine; Referring Provider Family Medicine; Visit Provider Nurse Practitioner Primary Care
DX: E04.2 Nontoxic multinodular goiter (principal)
CPT/HCPCS: 76536